=== PATIENT | female | born 1935 | race Caucasian/White ===

== ENCOUNTER → 2016-11-23 | Outpatient (CLI) | payer MEDICARE, BC, MEDICAID ==
[~2016-11-23] MED LIST: ACET-2723 PO; ACET-62 PO; ALBU2.5V7 AEROSOL; ASCO10007 PO; ASPI81TA2 PO; BUDE0.5A AEROSOL; CITA20TA9 PO; CYAN100022 PO; DOCU-168 PO; DONE10TA30 PO; GUAI100S40 PO; GUAI600T PO; LEVO500T63 PO; LEVO50TA11 PO; LISI-621 PO; LORA0.5T86 PO; MAGN400O4 PO; MEMA10TA12 PO; POLY17PO6 PO
[2016-11-23 12:35] LABS: BASOPHILS % (AUTO) 0.2 % (0-2); HCT - HEMATOCRIT 47.3 % (36-46); HGB - HEMOGLOBIN 14.5 GM/DL (12-16); LYMPHOCYTES # (AUTO) 1.8 T/MM3 (1-4.8); LYMPHOCYTES % (AUTO) 32.1 % (23-45); MEAN CORPUSCULAR HGB 31.1 UUG (26-34); MEAN CORPUSCULAR HGB CONC(MCHC 30.7 GM/DL (31-37); MEAN CORPUSCULAR VOLUME 101.5 UM3 (80-100); MEAN PLATELET VOLUME 10.1 UM3 (9.4-12.4); MONOCYTES # (AUTO) 0.5 T/MM3 (0-0.8); MONOCYTES % (AUTO) 8.7 % (0-9.0); NEUTROPHILS #(AUTO)-ABSOLUTE 3.3 T/MM3 (1.8-7.7); RED BLOOD COUNT 4.66 M/MM3 (4.00-5.20); WBC - WHITE BLOOD COUNT 5.6 T/MM3 (4.5-11.0)
[2016-11-23 12:44] LABS: ALBUMIN 3.2 G/DL (3.5-5.0); ALBUMIN/GLOBULIN RATIO 1.1 RATIO (1.1-2.2); ALKALINE PHOSPHATASE 77 U/L (38-126); ALT (SGPT) 45 U/L (9-52); ANION GAP 5 MEQ/L (5-15); AST (SGOT) 46 U/L (14-36); BUN/CREATININE RATIO 49 RATIO (6-26); CALCIUM 9.6 MG/DL (8.4-10.2); CHLORIDE 105 MEQ/L (98-107); CO2 - CARBON DIOXIDE 36 MEQ/L (22-30); CREATININE 0.7 MG/DL (0.7-1.2); GLOMERULAR FILTRATION RATE 80; GLUCOSE 118 MG/DL (65-110); POTASSIUM 3.7 MEQ/L (3.6-5); SODIUM 146 MEQ/L (134-144); TOTAL PROTEIN 6.1 G/DL (6.3-8.2)
[2016-11-23 12:52] LABS: INFLUENZA A AG SCREEN POSITIVE (NEGATIVE); INFLUENZA B AG SCREEN NEGATIVE (NEGATIVE)
== END ==
LOC: LABNH.BH 11:30
PROVIDERS: ATTEND Nurse Practitioner
DX: R50.9 Fever, unspecified (principal); Z87.01 Personal history of pneumonia (recurrent)
CPT/HCPCS: 36415; 80053; 85025; 87400; P9604

== ENCOUNTER → 2016-12-06 | Outpatient (CLI) | payer MEDICARE, BC, MEDICAID ==
[2016-12-06 06:10] LABS: BASOPHILS % (AUTO) 0.2 % (0-2); EOSINOPHILS # (AUTO) 0.2 T/MM3 (0-0.5); EOSINOPHILS % (AUTO) 1.6 % (0-4); HCT - HEMATOCRIT 44.2 % (36-46); HGB - HEMOGLOBIN 13.7 GM/DL (12-16); IMMATURE GRANULOCYTE # (AUTO) 0.04 T/MM3 (0.00-0.03); IMMATURE GRANULOCYTE % (AUTO) 0.4 % (0.0-0.5); LYMPHOCYTES # (AUTO) 2.5 T/MM3 (1-4.8); MEAN CORPUSCULAR HGB 30.4 UUG (26-34); MEAN PLATELET VOLUME 10.4 UM3 (9.4-12.4); MONOCYTES # (AUTO) 0.7 T/MM3 (0-0.8); MONOCYTES % (AUTO) 7.7 % (0-9.0); NEUTROPHILS #(AUTO)-ABSOLUTE 6.1 T/MM3 (1.8-7.7); NEUTROPHILS % (AUTO) 64.1 % (33-66); RED BLOOD COUNT 4.51 M/MM3 (4.00-5.20); WBC - WHITE BLOOD COUNT 9.6 T/MM3 (4.5-11.0)
[2016-12-06 06:22] LABS: ALBUMIN 2.9 G/DL (3.5-5.0); ALKALINE PHOSPHATASE 118 U/L (38-126); ALT (SGPT) 57 U/L (9-52); ANION GAP 9 MEQ/L (5-15); AST (SGOT) 32 U/L (14-36); BUN/CREATININE RATIO 32 RATIO (6-26); CALCIUM 9.2 MG/DL (8.4-10.2); CHLORIDE 105 MEQ/L (98-107); CO2 - CARBON DIOXIDE 34 MEQ/L (22-30); CREATININE 0.5 MG/DL (0.7-1.2); GLOMERULAR FILTRATION RATE 118; GLUCOSE 108 MG/DL (65-110); POTASSIUM 3.7 MEQ/L (3.6-5); SODIUM 148 MEQ/L (134-144); TOTAL PROTEIN 5.9 G/DL (6.3-8.2)
[2016-12-06 06:49] LABS: THYROID STIM HORMONE-TSH 1.43 MIU/L (0.47-4.68)
[2016-12-07 00:53] LABS: LDL CHOLESTEROL,CALCULATED 129.2 (66-159); VLDL CHOLESTEROL 35.8 MG/DL (0-28)
== END ==
LOC: LABNH.BH 00:31
PROVIDERS: ATTEND Family Medicine
DX: E03.9 Hypothyroidism, unspecified (principal); E78.4 Other hyperlipidemia; I10 Essential (primary) hypertension
CPT/HCPCS: 36415; 80053; 80061; 84443; 85025; P9604